=== PATIENT | female | born 1965 | race Two or more races ===

== ENCOUNTER 2020-09-17 17:41 | Emergency (ER) | payer SELFPAY ==
[~2020-09-17] VITALS: Ht 160 cm; Wt 56.0 kg
[2020-09-17] MEDS ORDERED: SODIUM CHLORIDE 0.9% 1,000 ML IV ONE ×2 (18:00→23:00)
[2020-09-17 18:55] LABS: BASOPHILS % 0.4 % (0.0-2.0); EOSINOPHILS % 3.8 % (0.0-5.0); HEMATOCRIT. 37.5 % (36.0-48.0); HEMOGLOBIN. 12.6 g/dL (12.0-16.0); LYMPHOCYTES % 36.8 % (20.0-50.0); MEAN CORPUSCULAR HEMOGLOBIN 29.8 pg (28.0-32.0); MEAN CORPUSCULAR VOLUME 88.9 fL (81.0-99.0); MEAN PLATELET VOLUME 8.2 fl (7.4-10.4); MONOCYTES % 5.9 % (2.0-8.0); NEUTROPHILS % 53.1 % (40.0-76.0); PLATELET 258 x1000/uL (130-400); RED BLOOD CELL COUNT 4.21 mill/uL (4.2-5.4); RED CELL DISTRIBUTION WIDTH 12.9 % (11.6-14.6)
[2020-09-17 19:00] LABS: CHLORIDE 101 mEq/L (98-107)
[2020-09-17 19:04] LABS: ETHANOL BLOOD 175 mg/dL
[2020-09-17] MEDS ORDERED: INSULIN LISPRO 100 UNITS/ML SUBCUT ONE ×2 (19:30→21:45)
[2020-09-17] MEDS ORDERED: METF-414 PO (22:52)
[2020-09-17 23:55] VITALS: BP 121/72
== END 2020-09-17 23:56 | disposition home or self-care (01) ==
LOC: ER 17:41
DX: F10.129 Alcohol abuse with intoxication, unspecified (principal); Y90.6 Blood alcohol level of 120-199 mg/100 ml; E11.65 Type 2 diabetes mellitus with hyperglycemia; R41.82 Altered mental status, unspecified; Z79.4 Long term (current) use of insulin
CPT/HCPCS: 36415; 70450; 71045; 80053; 80320; 82962; 84484; 85025; 93005; 96360; 96361; 96372; 99285; J1815; J7030; G0480

== ENCOUNTER 2022-08-29 14:49 | Emergency (ER) | payer SELFPAY ==
[~2022-08-29] VITALS: Ht 157.5 cm; Wt 50.0 kg
[~2022-08-29 14:49] MED LIST: METF-414 PO
[2022-08-29 15:04] VITALS: BP 99/69
== END 2022-08-29 22:10 | disposition left against medical advice (07) ==
LOC: ER 14:49
DX: Z53.21 Procedure and treatment not carried out due to patient leaving prior to being seen by health care provider (principal)